=== PATIENT | female | born 1975 | race Caucasian/White ===

== ENCOUNTER 2016-07-17 16:42 | Emergency (ER) | payer OTHER ==
[~2016-07-17] VITALS: Ht 177.8 cm; Wt 110.0 kg
[~2016-07-17 16:42] MED LIST: ALLOPURINOL100 MG PO; AMBIEN5 MG PO; ASPIR 8181 M1 PO; ASPIR-LOW81 MG PO; ASPIRIN81 M1 PO; ATORVASTATIN CA40 MG PO; BENADRYL25 MG PO; COLACE100 MG PO; COLACE50 MG PO; COREG PO; COREG12.5 M1 PO; COREG25 M1 PO; ENDOCET 5-3251 EACH PO; EPIPEN ADU0.3 MG/0.3 IM; FUROSEMIDE40 MG PO; GABAPENTIN300 MG PO; GLUCOPHAGE500 MG PO; IBUPROFEN600 MG PO; LIPITOR40 MG PO; LISINOPRIL PO; LISINOPRIL10 MG PO; LORAZEPAM1 MG PO; METFORMIN HCL500 MG PO; NAPROSYN500 MG PO; NAPROXEN500 M1 PO; NAPROXEN500 MG PO; ONDANSETRON HCL4 MG PO; PEPCID40 MG PO; PERCOCET 10/1 TABLET PO; PERCOCET 5/31 TABLET PO; PRILOSEC20 MG PO; PROMETHAZINE HC25 M1 PO; PROZAC20 MG PO; SPIRONOLACTONE PO; SPIRONOLACTONE25 MG PO; TYLENOL PM PO; VENTOLIN HFA18 GM IH; VITAMIN D1000 UNIT PO; VITAMIN D31000 UNI2 PO; VITAMIN D5000 UNIT PO; ZANAFLEX4 MG PO; ZANTAC150 MG PO; ZITHROMAX Z-PA250 MG PO; ZOFRAN4 MG PO
[2016-07-17] MEDS ORDERED: PERCOCET 5/31 TABLET PO (19:39)
[2016-07-17 19:50] VITALS: BP 112/57
== END 2016-07-17 19:50 | disposition home or self-care (01) ==
LOC: EME 16:42
DX: S93.401A Sprain of unspecified ligament of right ankle, initial encounter (principal); J45.909 Unspecified asthma, uncomplicated; I11.0 Hypertensive heart disease with heart failure; I50.9 Heart failure, unspecified; E11.9 Type 2 diabetes mellitus without complications; M79.7 Fibromyalgia; E78.5 Hyperlipidemia, unspecified; K21.9 Gastro-esophageal reflux disease without esophagitis; Z87.442 Personal history of urinary calculi; Z79.84 Long term (current) use of oral hypoglycemic drugs; Z79.82 Long term (current) use of aspirin; F17.200 Nicotine dependence, unspecified, uncomplicated
CPT/HCPCS: 73610; 73630; 99281; 99284

== ENCOUNTER 2016-07-22 23:24 | Emergency (ER) | payer SELFPAY ==
[~2016-07-22] VITALS: Ht 177.8 cm; Wt 106.3 kg
[2016-07-23 00:49] LABS: HEMATOCRIT 37.4 % (36.0-46.0); MCH 25.7 PG (29.0-34.0); MCHC 31.6 G/DL (30.0-36.0); MCV 81.5 FL (83-99); MEAN PLAT.VOLUME 9.8 uM^3 (9.5-12.4); PLATELET COUNT 316 K/uL (156-360); RBC DIS.WIDTH-CV 19.4 % (11.8-14.6); RBC DIS.WIDTH-SD 57.6 % (39-53); RED BLOOD COUNT 4.59 M/uL (3.80-5.20); WHITE BLOOD COUNT 8.6 K/uL (4.1-10.2)
[2016-07-23 01:02] LABS: CHLORIDE 107 mEq/L (99-109); POTASSIUM 4.1 mEq/L (3.7-5.4); SODIUM 138 mEq/L (136-147)
[2016-07-23 01:04] LABS: GLUCOSE 107 mg/dL (70-99)
[2016-07-23 01:05] LABS: ANION GAP 8 MEQ/L (2-14)
[2016-07-23 01:06] LABS: TOTAL BILIRUBIN 0.2 mg/dL (0.0-1.0)
[2016-07-23 01:08] LABS: ALKALINE PHOSPHATASE 73 IU/L (3-129); GFR ESTIMATE (CALCULATED) > 59 mL/min/
[2016-07-23 01:09] LABS: UREA NITROGEN (BUN) 11 mg/dL (9-23)
[2016-07-23 01:11] LABS: LIPASE 12 U/L (1.0-51.0)
[2016-07-23 01:11] LABS: ADD MIUA? YES; BILIRUBIN NEGATIVE; BLOOD SMALL; COLOR STRAW ((YELLOW)); GLUCOSE (STRIP) NEGATIVE; KETONES NEGATIVE; LEUKOCYTES NEGATIVE; NITRITE NEGATIVE; PROTEIN (STRIP) NEGATIVE; SPECIFIC GRAVITY 1.009 (1.000-1.030); UROBILINOGEN 0.2 MG/DL (0.2-1.0)
[2016-07-23 01:17] LABS: BACTERIA RARE /HPF; EPITHELIAL CELLS RARE /HPF; MUCUS TRACE /LPF; RED BLOOD CELLS 0-5 /HPF (0-5); UCUL ADDED? NO; WHITE BLOOD CELLS 0-5 /HPF (0-5)
[2016-07-23] MEDS ORDERED: COLACE100 MG PO (03:04)
[2016-07-23] MEDS ORDERED: BENTYL10 MG PO (03:04)
[2016-07-23 03:22] VITALS: BP 101/60
== END 2016-07-23 03:23 | disposition home or self-care (01) ==
LOC: EME 23:24
PROVIDERS: Physician Assistant
DX: R10.816 Epigastric abdominal tenderness (principal); R11.2 Nausea with vomiting, unspecified; Z90.49 Acquired absence of other specified parts of digestive tract; I10 Essential (primary) hypertension; E78.5 Hyperlipidemia, unspecified; E11.9 Type 2 diabetes mellitus without complications; J45.909 Unspecified asthma, uncomplicated; Z95.0 Presence of cardiac pacemaker; Z87.442 Personal history of urinary calculi; Z79.84 Long term (current) use of oral hypoglycemic drugs; Z79.82 Long term (current) use of aspirin; F17.200 Nicotine dependence, unspecified, uncomplicated
CPT/HCPCS: 74177; 80053; 81003; 83605; 83690; 85027; 99281; 99285; J2405; J7030

== ENCOUNTER 2016-10-23 17:32 | Emergency (ER) | payer SELFPAY ==
[~2016-10-23] VITALS: Ht 177.8 cm; Wt 101.4 kg
[~2016-10-23 17:32] MED LIST changes: +BENTYL10 MG PO
[2016-10-23] MEDS ORDERED: DOXYCYCLINE HY100 MG PO (18:49)
[2016-10-23] MEDS ORDERED: ULTRAM50 MG PO (18:50)
[2016-10-23 19:08] VITALS: BP 138/88
== END 2016-10-23 19:09 | disposition home or self-care (01) ==
LOC: EME 17:32
DX: K02.9 Dental caries, unspecified (principal); F17.200 Nicotine dependence, unspecified, uncomplicated; Z88.0 Allergy status to penicillin; Z88.5 Allergy status to narcotic agent
CPT/HCPCS: 99281; 99283

== ENCOUNTER 2016-11-10 21:39 | Emergency (ER) | payer SELFPAY ==
[~2016-11-10] VITALS: Ht 175.3 cm; Wt 99.7 kg
[~2016-11-10 21:39] MED LIST changes: +DOXYCYCLINE HY100 MG PO; +ULTRAM50 MG PO
[2016-11-10 23:24] LABS: MCH 26.8 PG (29.0-34.0); MCV 83.9 FL (83-99); MEAN PLAT.VOLUME 10.8 uM^3 (9.5-12.4); PLATELET COUNT 351 K/uL (156-360); RBC DIS.WIDTH-CV 15.8 % (11.8-14.6); RBC DIS.WIDTH-SD 48.6 % (39-53); RED BLOOD COUNT 4.77 M/uL (3.80-5.20); WHITE BLOOD COUNT 7.4 K/uL (4.1-10.2)
[2016-11-10 23:29] LABS: POTASSIUM ND MEQ/L (3.7-5.4)
[2016-11-10 23:35] LABS: ADD MIUA? YES; BILIRUBIN NEGATIVE; BLOOD MODERATE; COLOR AMBER ((YELLOW)); GLUCOSE (STRIP) NEGATIVE; KETONES NEGATIVE; LEUKOCYTES NEGATIVE; NITRITE NEGATIVE; PROTEIN (STRIP) 30; SPECIFIC GRAVITY 1.032 (1.000-1.030)
[2016-11-10 23:37] LABS: CHLORIDE 107 mEq/L (99-109); SODIUM 139 mEq/L (136-147)
[2016-11-10 23:40] LABS: GLUCOSE 108 mg/dL (70-99)
[2016-11-10 23:41] LABS: ANION GAP 13 MEQ/L (2-14); TOTAL BILIRUBIN 0.3 mg/dL (0.0-1.0)
[2016-11-10 23:42] LABS: SERUM ETHYL ALCOHOL < 10 mg/dL
[2016-11-10 23:43] LABS: ALKALINE PHOSPHATASE 91 IU/L (3-129); GFR ESTIMATE (CALCULATED) > 59 mL/min/
[2016-11-10 23:44] LABS: UREA NITROGEN (BUN) 6 mg/dL (9-23)
[2016-11-10 23:44] LABS: BACTERIA NONE SEEN /HPF; EPITHELIAL CELLS RARE /HPF; MUCUS 4+ /LPF; UCUL ADDED? NO; WHITE BLOOD CELLS 0-5 /HPF (0-5)
[2016-11-10 23:47] LABS: LIPASE 8 U/L (1.0-51.0)
[2016-11-10 23:53] LABS: QUANTITATIVE HCG < 4.0 MIU/ML
[2016-11-11 00:18] LABS: POTASSIUM 3.7 mEq/L (3.7-5.4)
[2016-11-11] MEDS ORDERED: BENTYL20 MG PO (00:42)
[2016-11-11] MEDS ORDERED: ZOFRAN4 MG PO (00:42)
[2016-11-11 01:01] LABS: AMPHETAMINE NEGATIVE (500 ng/mL); COCAINE NEGATIVE (150 ng/mL); METHAMPHETAMINE NEGATIVE (500 ng/mL); OPIATES (MORPHINE) PRESUMPTIVE POSITIVE (100 ng/mL); PHENCYCLIDINE NEGATIVE (25 ng/mL); THC CANNABINOIDS PRESUMPTIVE POSITIVE (50 ng/mL)
[2016-11-11 01:02] LABS: ADD MEDTOX COMMENT Y; BARBITURATES NEGATIVE (200 ng/mL); BENZODIAZEPINES NEGATIVE (150 ng/mL); INTERNAL CONTROLS VALID? YES; METHADONE NEGATIVE (200 ng/mL); OXYCODONE PRESUMPTIVE POSITIVE (100 ng/mL); PROPOXYPHENE NEGATIVE (300 ng/mL); TRICYCLIC ANTIDEPRESSANTS NEGATIVE (300 ng/mL)
[2016-11-11 01:05] VITALS: BP 130/86
== END 2016-11-11 01:08 | disposition home or self-care (01) ==
LOC: EME 21:39
PROVIDERS: Emergency Medicine
DX: R10.10 Upper abdominal pain, unspecified (principal); R11.2 Nausea with vomiting, unspecified; R19.7 Diarrhea, unspecified; F19.10 Other psychoactive substance abuse, uncomplicated; Z87.442 Personal history of urinary calculi; Z90.49 Acquired absence of other specified parts of digestive tract; I10 Essential (primary) hypertension; E78.5 Hyperlipidemia, unspecified; E11.9 Type 2 diabetes mellitus without complications; Z79.84 Long term (current) use of oral hypoglycemic drugs; Z95.0 Presence of cardiac pacemaker; Z79.82 Long term (current) use of aspirin; J45.909 Unspecified asthma, uncomplicated; F17.200 Nicotine dependence, unspecified, uncomplicated
CPT/HCPCS: 74177; 80053; 81003; 83690; 84702; 84999; 85027; 99281; 99284; G0480; J2765; J7030

== ENCOUNTER 2017-01-23 02:57 | Emergency (ER) | payer SELFPAY ==
[~2017-01-23] VITALS: Ht 175.3 cm; Wt 97.6 kg
[~2017-01-23 02:57] MED LIST changes: +BENTYL20 MG PO
[2017-01-23 03:38] LABS: HEMATOCRIT 40.6 % (36.0-46.0); MCH 27.6 PG (29.0-34.0); MCHC 33.3 G/DL (30.0-36.0); MEAN PLAT.VOLUME 9.9 uM^3 (9.5-12.4); PLATELET COUNT 343 K/uL (156-360); RBC DIS.WIDTH-CV 17.7 % (11.8-14.6); RBC DIS.WIDTH-SD 53.6 % (39-53); RED BLOOD COUNT 4.89 M/uL (3.80-5.20); WHITE BLOOD COUNT 14.2 K/uL (4.1-10.2)
[2017-01-23 03:46] LABS: CHLORIDE 107 mEq/L (99-109); POTASSIUM 3.6 mEq/L (3.7-5.4); SODIUM 137 mEq/L (136-147)
[2017-01-23 03:48] LABS: GLUCOSE 171 mg/dL (70-99)
[2017-01-23 03:49] LABS: ANION GAP 11 MEQ/L (2-14)
[2017-01-23 03:50] LABS: TOTAL BILIRUBIN 0.5 mg/dL (0.0-1.0)
[2017-01-23 03:51] LABS: ALKALINE PHOSPHATASE 86 IU/L (3-129)
[2017-01-23 03:52] LABS: GFR ESTIMATE (CALCULATED) > 59 mL/min/
[2017-01-23 03:53] LABS: UREA NITROGEN (BUN) 12 mg/dL (9-23)
[2017-01-23 03:55] LABS: LIPASE 5 U/L (1.0-51.0)
[2017-01-23 03:58] LABS: TROP-I INTERPRETATION NEGATIVE; TROPONIN-I 0.02 ng/mL (0.0-0.30)
[2017-01-23 06:17] LABS: AMPHETAMINE PRESUMPTIVE POSITIVE (500 ng/mL); BARBITURATES NEGATIVE (200 ng/mL); BENZODIAZEPINES NEGATIVE (150 ng/mL); COCAINE PRESUMPTIVE POSITIVE (150 ng/mL); METHADONE NEGATIVE (200 ng/mL); METHAMPHETAMINE NEGATIVE (500 ng/mL); OPIATES (MORPHINE) NEGATIVE (100 ng/mL); OXYCODONE PRESUMPTIVE POSITIVE (100 ng/mL); PHENCYCLIDINE NEGATIVE (25 ng/mL); PROPOXYPHENE NEGATIVE (300 ng/mL); THC CANNABINOIDS PRESUMPTIVE POSITIVE (50 ng/mL); TRICYCLIC ANTIDEPRESSANTS NEGATIVE (300 ng/mL)
[2017-01-23 06:18] LABS: ADD MEDTOX COMMENT Y; INTERNAL CONTROLS VALID? YES
[2017-01-23 06:37] LABS: ADD MIUA? YES; BILIRUBIN NEGATIVE; BLOOD MODERATE; COLOR YELLOW ((YELLOW)); GLUCOSE (STRIP) NEGATIVE; KETONES NEGATIVE; LEUKOCYTES NEGATIVE; NITRITE NEGATIVE; PROTEIN (STRIP) 30; SPECIFIC GRAVITY 1.032 (1.000-1.030); UROBILINOGEN 0.2 MG/DL (0.2-1.0)
[2017-01-23 06:48] LABS: MARIJUANA QUANT VALUE 0 NG/ML
[2017-01-23 07:01] LABS: EPITHELIAL CELLS RARE /HPF; MUCUS NONE SEEN /LPF; RED BLOOD CELLS 0-5 /HPF (0-5); WHITE BLOOD CELLS NONE SEEN /HPF (0-5)
[2017-01-23 07:02] LABS: AMORPHOUS URATES CRYSTALS 1+; BACTERIA 4+ /HPF; CASTS NONE SEEN /LPF; CRYSTALS PRESENT; UCUL ADDED? YES
[2017-01-23 07:05] VITALS: BP 132/72
== END 2017-01-23 07:06 | disposition short-term general hospital (02) ==
LOC: EME 02:57
PROVIDERS: Emergency Medicine
DX: S02.612A Fracture of condylar process of left mandible, initial encounter for closed fracture (principal); S03.02XA Dislocation of jaw, left side, initial encounter; S01.81XA Laceration without foreign body of other part of head, initial encounter; S01.512A Laceration without foreign body of oral cavity, initial encounter; W18.39XA Other fall on same level, initial encounter; Y92.002 Bathroom of unspecified non-institutional (private) residence as the place of occurrence of the external cause; R55 Syncope and collapse; F14.10 Cocaine abuse, uncomplicated; F15.10 Other stimulant abuse, uncomplicated; Z95.810 Presence of automatic (implantable) cardiac defibrillator; Z23 Encounter for immunization; R11.0 Nausea; J45.909 Unspecified asthma, uncomplicated; I10 Essential (primary) hypertension; E78.5 Hyperlipidemia, unspecified; E11.9 Type 2 diabetes mellitus without complications; Z79.84 Long term (current) use of oral hypoglycemic drugs; Z79.82 Long term (current) use of aspirin; K02.9 Dental caries, unspecified; F17.200 Nicotine dependence, unspecified, uncomplicated
CPT/HCPCS: 70450; 70486; 71010; 80053; 81003; 83690; 84484; 84999; 85027; 87086; 93005; 99281; 99285; J1170; J7030; J7050